=== PATIENT | male | born 1995 | race Caucasian/White ===

== ENCOUNTER 2018-06-18 22:16 | Emergency (ER) | payer OTHER ==
[2018-06-18] MEDS ORDERED: NS 0.9% 1000 ML* 2,000 ML IV ONE (22:57)
[2018-06-18] MEDS ORDERED: Ondansetron INJ* 2 MG/ML VIAL IV ONE (22:58)
[2018-06-18 23:13] LABS: Hematocrit 46 % (42-52); Hemoglobin 16.1 g/dl (14.0-18.0); Mean Corpuscular HGB Conc 35 g/dl (31-36); Mean Corpuscular Hemoglobin 31 pg (27-31); Mean Corpuscular Volume 89 fL (80-94); Mean Platelet Volume 8.3 fL (7.4-10.4); Platelet Count 345 10^3/ul (150-450); Red Blood Count 5.16 10^6/ul (4.00-5.40); Red Cell Distribution Width 13 % (10.5-15); White Blood Count 14.3 10^3/ul (3.5-10.8)
[2018-06-18 23:18] LABS: INR 0.91 (0.77-1.02)
[2018-06-18 23:24] LABS: EGFR Non-African American 105.5 (>60)
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
[2018-06-18 23:35] LABS: ABS Basophils 0.1 10^3/ul (0-0.2); ABS Eosinophils 0.1 10^3/ul (0-0.6); ABS Lymphocytes 5.5 10^3/ul (1.0-4.8); ABS Monocytes 1.2 10^3/ul (0-0.8); ABS Neutrophils 7.4 10^3/ul (1.5-7.7); ABS Nucleated RBC 0.1 10^3/ul; Eosinophil % 0.4 % (0-6); Lymphocyte % 38.6 % (25-47); Nucleated Red Blood Cells % 0.5
--- NOTE | 2018-06-19 02:08 | RAD ---
EXAM: CT Chest Without Intravenous Contrast EXAM DATE/TIME: 06/19/2018 1:55 AM CLINICAL HISTORY: 23 years old, male; Abnormal findings; Abnormal radiologic exam of lung or chest; Additional info: JESSEE yuen for pna TECHNIQUE: Axial computed tomography images of the chest without intravenous contrast. All CT scans at this facility use at least one of these dose optimization techniques: automated exposure control; mA and/or kV adjustment per patient size (includes targeted exams where dose is matched to clinical indication); or iterative reconstruction. Coronal and sagittal reformatted images were created and reviewed. COMPARISON: OT CXR PORTAP CHEST AP PORTABLE 06/18/2018 11:10 PM FINDINGS: Thyroid: No thyroid nodules. Lungs: No pulmonary nodules, masses, or consolidations. No bronchiectasis, peribronchial thickening, or luminal defects. Minimal subsegmental atelectasis posterior right lung. Pleural space: Normal. No pneumothorax. No pleural effusion. Heart: Normal. No cardiomegaly. No pericardial effusion. Aorta: Normal. No aortic aneurysm. Lymph nodes: Normal. No enlarged lymph nodes. Bones/joints: No fractures. No suspicious bone lesions. Soft tissues: Normal. Liver: Diffuse low-attenuation of the liver parenchyma with sparing along the gallbladder fossa. IMPRESSION: 1. No CT findings to correlate with patient's symptomatology. Specifically no pneumonia. 2. Hepatic steatosis. To contact [facility] with a general question: [facility] - [phone] For direct physician to physician contact: Physician Hotline - [phone] [facility] ([facility] Facility ID #[id number])
[2018-06-19 02:31] LABS: Urine Appearance Clear; Urine Blood Negative (Negative); Urine Color Yellow; Urine Ketones Negative (Negative); Urine Protein Negative (Negative); Urine Specific Gravity 1.005 (1.010-1.030); Urine Urobilinogen Negative (Negative)
[2018-06-19 06:59] VITALS: BP 0/0
--- NOTE | 2018-06-19 09:34 | RAD ---
INDICATION: Unresponsiveness COMPARISON: None. TECHNIQUE: Single AP portable view of the chest was obtained. FINDINGS: Image quality is compromised due to the relative inferiority of a portable chest x-ray. The heart and mediastinum exhibit normal size and contour. There is hazy density overlying the bilateral lungs. The pulmonary vasculature appears to be engorged and indistinct. Visualized bones are normal for the patient's age. IMPRESSION: Hazy density overlying the bilateral lungs could be due to pulmonary edema or aspiration pneumonitis according to the reported clinical presentation. The appearance may further be exacerbated by the patient's large body habitus. R1F
== END 2018-06-19 06:57 | disposition home or self-care (01) ==
LOC: ED 22:16
DX: F10.129 Alcohol abuse with intoxication, unspecified (principal); K76.0 Fatty (change of) liver, not elsewhere classified; Z88.0 Allergy status to penicillin
CPT/HCPCS: 36415; 71045; 71250; 80053; 80307; 80320; 80329; 81003; 82140; 83605; 83735; 84484; 85025; 85060; 85610; 93005; 96361; 96374; 99284; G0480; J2405

== ENCOUNTER 2018-08-31 15:22 | Emergency (ER) | payer OTHER ==
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
[2018-08-31] MEDS ORDERED: Ketorolac INJ* 60 MG/2 ML VIAL IM ONE (17:50)
[2018-08-31 18:12] VITALS: BP 139/79
== END 2018-08-31 18:27 | disposition home or self-care (01) ==
LOC: ED 15:22
DX: S16.1XXA Strain of muscle, fascia and tendon at neck level, initial encounter (principal); S43.401A Unspecified sprain of right shoulder joint, initial encounter; T14.8XXA Other injury of unspecified body region, initial encounter; V57.5XXA Driver of pick-up truck or van injured in collision with fixed or stationary object in traffic accident, initial encounter; Y92.410 Unspecified street and highway as the place of occurrence of the external cause; Z88.0 Allergy status to penicillin
CPT/HCPCS: 70450; 72125; 96372; 99282; J1885

== ENCOUNTER → 2019-03-04 02:17 | Emergency (ER) | payer SELFPAY ==
[~2019-03-04 02:17] MED LIST: Haloperidol INJ IV/IM* 5 MG/ML AMP ONE; LORazepam INJ* 2 MG/ML 1 ML VIAL ONE; Lorazepam PYXIS KEY ONE; diPHENhydraMINE IV* 50 MG/ML 1 ml VIAL (BENADRYL) ONE
[2019-03-04 04:32] LABS: ABS Eosinophils 0.1 10^3/ul (0-0.6); ABS Monocytes 0.6 10^3/ul (0-0.8); ABS Neutrophils 5.3 10^3/ul (1.5-7.7); Eosinophil % 0.9 %; Hematocrit 47 % (42-52); Hemoglobin 16.1 g/dL (14.0-18.0); Lymphocyte % 24.8 %; Mean Corpuscular HGB Conc 34 g/dL (31-36); Mean Corpuscular Hemoglobin 30 pg (27-31); Mean Corpuscular Volume 86 fL (80-94); Mean Platelet Volume 7.4 fL (7.4-10.4); Nucleated Red Blood Cells % 0.1; Platelet Count 251 10^3/uL (150-450); Red Blood Count 5.46 10^6 /uL (4.18-5.48); Red Cell Distribution Width 14 % (10-15)
[2019-03-04 04:58] LABS: ALT 40 U/L (7-52); AST 27 U/L (13-39); Albumin/Globulin Ratio 1.5 (1-3); Alkaline Phosphatase 45 U/L (34-104); Anion Gap 6 mmol/L (2-11); BUN/Creatinine Ratio 18.6 (8-20); Blood Urea Nitrogen 16 mg/dL (6-24); CO2 Carbon Dioxide 26 mmol/L (22-32); Calcium 9.6 mg/dL (8.6-10.3); Chloride 107 mmol/L (101-111); EGFR African American 131.1 (>60); EGFR Non-African American 108.4 (>60); Globulin 2.7 g/dL (2-4); Glucose 119 mg/dL (70-100); Potassium 3.9 mmol/L (3.5-5.0); Sodium 139 mmol/L (135-145); Total Protein 6.7 g/dL (6.4-8.9)
[2019-03-04 04:59] LABS: Acetaminophen < 15 mcg/mL; Alcohol < 10 mg/dL (<10); Salicylate < 2.50 mg/dL (<30)
[2019-03-04 05:14] LABS: TSH (Thyroid Stimulating Horm) 1.05 mcIU/mL (0.34-5.60)
--- NOTE | 2019-03-04 06:11 | ED ---
Psychiatric Complaint - HPI Summary HPI Summary: Patient is a 23 y/o M presenting to ED with police judge for legal blood draw. While patient was being evaluated by nurse, he stated that he had plans of self-harm. In the room, when asked how he is doing, he initially states that he is feeling "Great, never felt better". Patient agrees with blood draw. When questioned about whether he would self-harm, he states, "Maybe at some point. Or harm somebody". Home medications and allergies are reviewed. - History Of Current Complaint Chief Complaint: EDSuicidal Time Seen by Provider: 03/04/19 02:29 Hx Obtained From: Patient Onset/Duration: Still Present Timing: Constant Character: Depressed Has Suicidal: Reports: Thoughts Has Homicidal: Reports: Thoughts - Allergies/Home Medications Allergies/Adverse Reactions: Allergies Allergy/AdvReac Type Severity Reaction Status Date / Time amoxicillin Allergy Rash Verified 08/31/18 15:32 Home Medications: Home Medications Unobtainable 03/04/19 [History Confirmed 03/04/19] PMH/Surg Hx/FS Hx/Imm Hx Endocrine/Hematology History: Denies: Hx Anticoagulant Therapy, Hx Blood Disorders Sensory History: Denies: Hx Legally Blind Opthamlomology History: Denies: Hx Legally Blind Infectious Disease History: No Infectious Disease History: Denies: Traveled Outside the [place] in Last 30 Days - Family History Known Family History: Positive: Cardiac Disease, Diabetes - Social History Alcohol Use: unk Alcohol Amount: 03/04/19 Substance Use Type: Reports: Marijuana Substance Use Comment - Amount & Last Used: unk 03/04/19 Hx Tobacco Use: Yes Smoking Status (MU): Unknown if Ever Smoked Type: Smokeless Tobacco Review of Systems Negative: Fever - on vitals, temp 97.9 F Psychological: Other - positive - HI/SI All Other Systems Reviewed And Are Negative: Yes Physical Exam - Summary Physical Exam Summary: VITAL SIGNS: Reviewed. GENERAL: Patient is a well-developed and nourished male who is lying comfortable in the stretcher. Patient is not in any acute respiratory distress. Patient is handcuffed. HEAD AND FACE: No signs of trauma. No ecchymosis, hematomas or skull depressions. No sinus tenderness. EYES: PERRLA, EOMI x 2, No injected conjunctiva, no nystagmus. EARS: Hearing grossly intact. Ear canals and tympanic membranes are within normal limits. MOUTH: Oropharynx within normal limits. NECK: Supple, trachea is midline, no adenopathy, no JVD, no carotid bruit, no c- spine tenderness, neck with full ROM CHEST: Symmetric, no tenderness at palpation LUNGS: Clear to auscultation bilaterally. No wheezing or crackles. CVS: Regular rate and rhythm, S1 and S2 present, no murmurs or gallops appreciated. ABDOMEN: Soft, non-tender. No signs of distention. No rebound no guarding, and no masses palpated. Bowel sounds are normal. EXTREMITIES: FROM in all major joints, no edema, no cyanosis or clubbing. NEURO: Alert and oriented x 3. No acute neurological deficits. Speech is normal and follows commands. SKIN: Dry and warm PSYCH: SI/HI are both endorsed. Triage Information Reviewed: Yes Vital Signs On Initial Exam: Initial Vitals Temp Pulse Resp BP Pulse Ox 97.9 F 98 18 138/108 98 03/04/19 02:18 03/04/19 02:18 03/04/19 02:18 03/04/19 02:18 03/04/19 02:18 Vital Signs Reviewed: Yes Diagnostics - Vital Signs Vital Signs Temp Pulse Resp BP Pulse Ox 03/04/19 05:36 80 95/69 96 03/04/19 05:06 86 111/75 95 03/04/19 05:01 83 95 03/04/19 04:36 86 93/69 96 03/04/19 04:06 92 113/70 96 03/04/19 04:01 94 96 03/04/19 03:38 103 90 03/04/19 03:36 106 125/85 83 03/04/19 02:18 97.9 F 98 18 138/108 98 - Laboratory Lab Results: Lab Results 03/04/19 03/04/19 Range/Units 04:20 04:20 WBC 8.0 (3.5-10.8) 10^3/uL RBC 5.46 (4.18-5.48) 10^6 /uL Hgb 16.1 (14.0-18.0) g/dL Hct 47 (42-52) % MCV 86 (80-94) fL MCH 30 (27-31) pg MCHC 34 (31-36) g/dL RDW 14 (10-15) % Plt Count 251 (150-450) 10^3/uL MPV 7.4 (7.4-10.4) fL Neut % (Auto) 65.9 % Lymph % (Auto) 24.8 % [place] % (Auto) 7.8 % Eos % (Auto) 0.9 % Baso % (Auto) 0.6 % Absolute Neuts (auto) 5.3 (1.5-7.7) 10^3/ul Absolute Lymphs (auto) 2.0 (1.0-4.8) 10^3/ul Absolute Monos (auto) 0.6 (0-0.8) 10^3/ul Absolute Eos (auto) 0.1 (0-0.6) 10^3/ul Absolute Basos (auto) 0.0 (0-0.2) 10^3/ul Absolute Nucleated RBC 0.0 10^3/ul Nucleated RBC % 0.1 Sodium 139 (135-145) mmol/L Potassium 3.9 (3.5-5.0) mmol/L Chloride 107 (101-111) mmol/L Carbon Dioxide 26 (22-32) mmol/L Anion Gap 6 (2-11) mmol/L BUN 16 (6-24) mg/dL Creatinine 0.86 (0.67-1.17) mg/dL Est GFR ( Amer) 131.1 (>60) Est GFR (Non-Af Amer) 108.4 (>60) BUN/Creatinine Ratio 18.6 (8-20) Glucose 119 H (70-100) mg/dL Calcium 9.6 (8.6-10.3) mg/dL Total Bilirubin 0.70 (0.2-1.0) mg/dL AST 27 (13-39) U/L ALT 40 (7-52) U/L Alkaline Phosphatase 45 (34-104) U/L Total Protein 6.7 (6.4-8.9) g/dL Albumin 4.0 (3.2-5.2) g/dL Globulin 2.7 (2-4) g/dL Albumin/Globulin Ratio 1.5 (1-3) TSH 1.05 (0.34-5.60) mcIU/mL Salicylates < 2.50 (<30) mg/dL Acetaminophen < 15 mcg/mL Serum Alcohol < 10 (<10) mg/dL Result Diagrams: 03/04/19 04:20 03/04/19 04:20 Lab Statement: Any lab studies that have been ordered have been reviewed, and results considered in the medical decision making process. Re-Evaluation - Re-Evaluation First Eval Re-Evaluation Time: 03:30 Comment: 0330 patient became combative and non-cooperative, Haldol 5 mg, Bendaryl 50 mg, Ativan 2 mg administered. Course/Dx - Course Course Of Treatment: Patient is a 23 y/o M presenting to ED with police judge for legal blood draw. While patient was being evaluated by nurse, he stated that he had plans of self-harm. In the room, when asked how he is doing, he initially states that he is feeling "Great, never felt better". Patient agrees with blood draw. When questioned about whether he would self-harm, he states, "Maybe at some point. Or harm somebody". On physical exam, patient is noted to be handcuffed, SI/HI endorsed. During ED stay, patient became aggressive and non -cooperative, patient given Ativan 2 mg. Labs showed glucose 119, salicylates < 2.5, acetaminophen < 15, serum alcohol < 10. 0330 patient became combative and non-cooperative, Haldol 5 mg, Bendaryl 50 mg, Ativan 2 mg administered. Patient is medically cleared for [facility]. Patient is signed out to Dr. Bowling at 0700 03/04/19 shift change pending [facility] and disposition of this patient. - Differential Dx/Clinical Impression Provider Diagnosis: Depression Discharge - Sign-Out/Discharge Documenting (check all that apply): Sign-Out Patient Signing out patient TO: Lima Bowling Patient Received Moderate/Deep Sedation with Procedure: No - Discharge Plan Condition: Stable Referrals: Aravind MCNEIL,Danis Harrell [Primary Care Provider] - - Attestation Statements Document Initiated by Scribe: Yes Documenting Scribe: GREGORY COURTNEY Provider For Whom Joycelyn is Documenting (Include Credential): SUMANTH PERALTA MD Scribe Attestation: GREGORY Benavidez, scribed for SUMANTH PERALTA MD on 03/04/19 at 0711. Status of Scribe Document: Ready
--- NOTE | 2019-03-04 07:08 | ED ---
Progress - Progress Note Progress Note: Receiving sign out from Dr. Armando at shift change 0700 03/04/19. Patient is a 23 y/o M presenting to ED with community relations police lieutenant for legal blood draw. While patient was being evaluated by nurse, he stated that he had plans of self-harm. Patient has serum ETOH of less than 10. He is on Q 15 minute checks. Patient medically cleared for [facility] at 0927. [facility] discharged the patient with a diagnosis of polysubstance abuse and mood disorder, referred to [facility] per Dr. Barnett. Physical Exam - Summary Physical Exam Summary: Appearance: Ill-appearing, moderate pain distress, well-nourished Skin: Warm, color reflects adequate perfusion, dry Head: Normal Head/Face inspection, atraumatic Eyes: Conjunctiva clear ENT: Normal inspection Neck: Supple, no nodes, no JVD Respiratory: Lungs clear, normal breath sounds, no respiratory distress Cardio: RRR, No murmur, pulses normal, brisk capillary refill Abdomen: Soft, nontender Bowel sounds: Present Musculoskeletal: Strength Intact/ROM intact, no calf tenderness, no edema. Psychological: Normal Neuro: Alert, muscle tone normal, no focal deficit Triage Information Reviewed: Yes Vital Signs On Initial Exam: Initial Vitals Temp Pulse Resp BP Pulse Ox 97.9 F 98 18 138/108 98 03/04/19 02:18 03/04/19 02:18 03/04/19 02:18 03/04/19 02:18 03/04/19 02:18 Vital Signs Reviewed: Yes Re-Evaluation - Re-Evaluation First Eval Re-Evaluation Time: 03:30 Comment: 0330 patient became combative and non-cooperative, given medications. Course/Dx - Course Course Of Treatment: Receiving sign out from Dr. Armando at shift change 0700 03/04. Patient is a 23 y/o M presenting to ED with community relations police lieutenant for legal blood draw. While patient was being evaluated by nurse, he stated that he had plans of self-harm. Patient has serum ETOH of less than 10. He is on Q 15 minute checks. Patient medically cleared for [facility] at 0927. [facility] discharged the patient with a diagnosis of polysubstance abuse and mood disorder, referred to [facility] per Dr. Barnett. - Diagnoses Provider Diagnoses: Polysubstance abuse, Mood disorder Discharge - Sign-Out/Discharge Documenting (check all that apply): Patient Departure - Discharge, per [facility], Receiving Sign-Out Receiving patient FROM: Toney Armando - Shift change 0700 03/04/19 - Discharge Plan Condition: Stable Referrals: Aravind MCNEIL,Danis Harrell [Primary Care Provider] - - Attestation Statements Document Initiated by Scribe: Yes Documenting Scribe: Monroe Lamb Provider For Whom Scribe is Documenting (Include Credential): Lima Bowling MD Scribe Attestation: Monroe Benavidez, scribed for Lima Bowling MD on 03/04/19 at 1444. Status of Scribe Document: Ready
[2019-03-04 08:33] LABS: Urine Appearance Clear; Urine Bilirubin Negative (Negative); Urine Blood Negative (Negative); Urine Color Amber; Urine Glucose Negative (Negative); Urine Ketones Negative (Negative); Urine Nitrite Negative (Negative); Urine Protein Negative (Negative); Urine Urobilinogen Positive (Negative)
[2019-03-04 08:55] LABS: Urine Benzodiazepine Screen None Detected (None Detect); Urine Opiates Screen None Detected (None Detect)
[2019-03-04 14:53] VITALS: BP 113/68
== END | disposition home or self-care (01) ==
LOC: ED 02:17
DX: F19.10 Other psychoactive substance abuse, uncomplicated (principal); F39 Unspecified mood [affective] disorder; F32.9 Major depressive disorder, single episode, unspecified; Z88.1 Allergy status to other antibiotic agents
CPT/HCPCS: 36415; 80053; 80307; 80320; 80329; 81003; 84443; 85025; 99285; G0480; J1200; J1630; J2060